=== PATIENT | male | born 1990 | race Two or more races ===

== ENCOUNTER 2017-12-23 08:09 | Emergency (ER) | payer MEDICAID ==
[~2017-12-23] VITALS: Ht 175.3 cm; Wt 90.7 kg
[2017-12-23 08:13] VITALS: BP 125/47
[2017-12-23] MEDS ORDERED: ACETAMINOPHEN 500 MG TAB PO ONE (09:00)
== END 2017-12-23 09:04 | disposition home or self-care (01) ==
LOC: ER 08:09
DX: B00.89 Other herpesviral infection (principal)
CPT/HCPCS: 10160